=== PATIENT | female | born 1960 | race Caucasian/White ===

== ENCOUNTER → 2023-08-13 07:04 | Outpatient (REF) | payer OTHER, SELFPAY | LOC: RCS 07:04 | PROVIDERS: ATTENDING PHYSICIAN Internal Medicine Cardiovascular Disease; FAMILY PHYSICIAN Family Medicine | DX: R07.2 Precordial pain (principal); E78.2 Mixed hyperlipidemia | CPT/HCPCS: 93017; 93350 ==

== ENCOUNTER → 2024-08-07 15:02 | Outpatient (REF) | payer OTHER, SELFPAY | LOC: WDC 15:02 | PROVIDERS: ATTENDING PHYSICIAN Physician Assistant Medical | DX: Z12.31 Encounter for screening mammogram for malignant neoplasm of breast (principal) | CPT/HCPCS: 77063; 77067 ==